=== PATIENT | male | born 1965 | race Two or more races ===

== ENCOUNTER 2017-12-04 08:15 | Emergency (ER) | payer SELFPAY ==
[~2017-12-04] VITALS: Ht 177.8 cm; Wt 79.4 kg
--- NOTE | 2017-12-04 08:20 | NUR ---
PT BIBRA FROM HOME TO ER BED 12 C/O PERIUIMBILICAL PAIN X 1 WEEK AND PT STATES WORST TODAY. PT DENIES N/V/D. GOWNED AND PLACED ON MONITOR. AWAITING MD MOREIRA.
--- NOTE | 2017-12-04 08:23 | NUR ---
DR LLAMAS AT BEDSIDE FOR EVAL.
--- NOTE | 2017-12-04 08:25 | NUR ---
IV LINE STARTED BLOOD DRAWN AND SENT TO LAB.
[2017-12-04] MEDS ORDERED: ONDANSETRON HCL/PF 4 MG/2 ML VIAL ONE (08:28)
[2017-12-04] MEDS ORDERED: HYDROMORPHONE 1 MG/1 ML DISP.SYRIN ONE (08:28)
[2017-12-04] MEDS ORDERED: ONDANSETRON HCL/PF 4 MG/2 ML VIAL IVP ONE (08:30)
[2017-12-04] MEDS ORDERED: IV NS 0.9% 1,000 ML BAG IV ONE (08:30)
[2017-12-04] MEDS ORDERED: HYDROMORPHONE INJ 2 MG/ML DISP.SYRIN IV ONE (08:30)
[2017-12-04 08:39] LABS: BASOPHILS # (AUTO) 0.1 /CMM (0.0-0.2); BASOPHILS % (AUTO) 0.8 % (0.0-2.0); EOSINOPHILS % (AUTO) 2.7 % (0.0-6.0); HEMATOCRIT 49 % (39-51); LYMPHOCYTES # (AUTO) 2.4 /CMM (0.8-4.8); MEAN CORPUSCULAR HEMOGLOBIN 30 PG (26.0-33.0); MEAN CORPUSCULAR HGB CONC 33 g/dl (31.0-36.0); MEAN CORPUSCULAR VOLUME 93 fL (80-96); MONOCYTES # (AUTO) 0.5 /CMM (0.1-1.30); MONOCYTES % (AUTO) 6.7 % (2.0-12.0); NEUTROPHILS # (AUTO) 4.5 /CMM (1.8-8.9); NEUTROPHILS % (AUTO) 58.8 % (43.0-81.0); PLATELET COUNT (AUTO) 253 /CMM (150-450); RDW COEFFICIENT OF VARIATION 12.5 (11.5-15.0); WHITE BLOOD COUNT (AUTO) 7.6 K/uL (4.3-11.0)
[2017-12-04 08:48] LABS: POTASSIUM 3.9 mmol/L (3.5-5.1)
[2017-12-04 08:54] LABS: ALBUMIN 4.2 g/dL (3.4-5.0); BILIRUBIN,DIRECT 0.4 mg/dL (0.0-0.2); BILIRUBIN,TOTAL 1.7 mg/dL (0.2-1.0); TOTAL PROTEIN, SERUM 7.7 g/dL (6.4-8.2)
[2017-12-04 08:57] LABS: INR 1.01 (0.87-1.13)
--- NOTE | 2017-12-04 09:05 | NUR ---
PT TO RADIOLOGY FOR ABDOMINAL CT SCAN VIA [facility].
--- NOTE | 2017-12-04 10:19 | NUR ---
PT REFUSING TO SIGN D/C PAPERS STATING "THE DOCTOR DID NOT EVEN TOUCH MY STOMACH." EXPLAINED TO PT THAT HE HAD EXTENSIVE WORK UP DONE AND HE WAS GIVEN MEDICATION FOR HIS PAIN. PT IS D/C IN STABLE CONDITION.
[2017-12-04 10:22] VITALS: BP 115/65
== END 2017-12-04 10:26 | disposition home or self-care (01) ==
LOC: ER 08:17
DX: R10.33 Periumbilical pain (principal); F20.9 Schizophrenia, unspecified; Z90.49 Acquired absence of other specified parts of digestive tract; Z88.0 Allergy status to penicillin; Z88.6 Allergy status to analgesic agent
CPT/HCPCS: 36415; 74176; 80048; 80076; 83690; 85025; 85730; 93005; 96374; 96375; 99285; A4606; J1170; J2405; J7030; Z7610